=== PATIENT | female | born 1975 | race Caucasian/White ===

== ENCOUNTER 2019-02-07 09:08 | Emergency (ER) | payer MEDICAID ==
[~2019-02-07] VITALS: Ht 157.5 cm; Wt 88.9 kg
[2019-02-07 09:24] VITALS: BP_SYST 159
[2019-02-07] MEDS ORDERED: KETOROLAC TROMETHAMINE 60 MG/2 ML VIAL IM ONE (10:00)
[2019-02-07 10:19] LABS: BASOPHILS % (AUTO) 0.3 % (0.0-2.0); EOSINOPHILS # (AUTO) 0.1 K/uL (0.0-0.4); EOSINOPHILS % (AUTO) 0.8 % (0.0-4.0); HEMATOCRIT 37.6 % (36-48); HEMOGLOBIN 12.8 g/dL (12.0-16.0); LYMPHOCYTES # (AUTO) 1.9 K/uL (1.0-5.5); LYMPHOCYTES % (AUTO) 12.8 % (20.5-51.5); MEAN CORPUSCULAR HEMOGLOBIN 30 pg (27-31); MEAN CORPUSCULAR HGB CONC 34 % (32-36); MEAN CORPUSCULAR VOLUME 88 fL (79.0-98.0); MONOCYTES % (AUTO) 6.4 % (1.7-9.3); NEUTROPHILS # (AUTO) 11.9 K/uL (1.8-7.7); NEUTROPHILS % (AUTO) 79.7 % (40.0-70.0); PLATELET COUNT (AUTO) 214 K/uL (130-430); RED BLOOD CELL COUNT(AUTO) 4.27 MIL/uL (4.2-6.2); RED CELL DISTRIBUTION WIDTH 13.4 % (9.0-15.0)
[2019-02-07 10:26] LABS: CALCIUM 8.7 mg/dL (8.4-11.0); CREATININE 0.66 mg/dL (0.55-1.30); POTASSIUM 3.5 mmol/L (3.5-5.1)
[2019-02-07 10:32] LABS: ALBUMIN 3.1 g/dL (3.4-4.8); TOTAL BILIRUBIN 0.6 mg/dL (0.0-1.0)
[2019-02-07 10:41] LABS: BILIRUBIN,URINE NEGATIVE (NEGATIVE); BLOOD, URINE 1+ (NEGATIVE); CLARITY/URINE SL HAZY (CLEAR); COLOR,URINE YELLOW (YELLOW); GLUCOSE,URINE NEGATIVE (NEGATIVE); KETONES,URINE NEGATIVE (NEGATIVE); LEUKOCYTE ESTERASE ,URINE 3+ (NEGATIVE); NITRITE, URINE NEGATIVE (NEGATIVE); PH,URINE 6.5 (5.0-8.0); PROTEIN URINE NEGATIVE (NEGATIVE); UROBILINOGEN,URINE 0.2 (0.2-1.0)
[2019-02-07 10:50] LABS: BACTERIA,URINE MODERATE /HPF (None Seen); MUCUS,URINE 1+ /LPF (None Seen)
[2019-02-07] MEDS ORDERED: cefTRIAXone 250 MG VIAL IM ONE (11:30)
[2019-02-07] MEDS ORDERED: AZITHROMYCIN 250 MG TABLET PO ONE (11:30)
[2019-02-07] MEDS ORDERED: LIDOCAINE 1% 10 MG/ML, 20 ML MDV INJ ONE (11:45)
[2019-02-07] MEDS ORDERED: LIDOCAINE 1%, 20 ML MDV 20 ML ONE (11:50)
[2019-02-07 12:05] VITALS: BP_SYST 142
[2019-02-09 05:07] LABS: CHLAMYDIA TRACHOMATIS NAA Negative (Negative); NEISSERIA GONORRHOEAE NAA Negative (Negative)
== END 2019-02-07 12:05 | disposition home or self-care (01) ==
LOC: SED 09:08
DX: N39.0 Urinary tract infection, site not specified (principal)
CPT/HCPCS: 36415; 74176; 80053; 81000; 81025; 83690; 85025; 87086; 87491; 87591; 96372; 99284; J0696; J1885; J2001; Q0144

== ENCOUNTER 2023-04-21 16:31 | Inpatient (IN) | payer MEDICAID ==
[~2023-04-21] VITALS: Ht 157.5 cm; Wt 86.2 kg
[2023-04-21 16:49] VITALS: BP_SYST 165; PULSE 95; RESP 22; TEMP 96.2; O2SAT 96
[2023-04-21] MEDS ORDERED: MORPHINE 4 MG INJ. 4 MG/ML VIAL IVP ONE ×2 (17:15→22:15)
[2023-04-21] MEDS ORDERED: ONDANSETRON HCL 4 MG/2 ML VIAL ONE (17:36)
[2023-04-21 17:45] LABS: BASOPHILS % (AUTO) 0.3 % (0.0-2.0); EOSINOPHILS # (AUTO) 0.2 K/uL (0.0-0.4); EOSINOPHILS % (AUTO) 1.5 % (0.0-4.0); HEMATOCRIT 44.4 % (36-48); LYMPHOCYTES # (AUTO) 2.4 K/uL (1.0-5.5); LYMPHOCYTES % (AUTO) 16.3 % (20.5-51.5); MEAN CORPUSCULAR HEMOGLOBIN 30 pg (27-31); MEAN CORPUSCULAR HGB CONC 34 % (32-36); MEAN CORPUSCULAR VOLUME 88 fL (79.0-98.0); MONOCYTES # (AUTO) 0.7 K/uL (0.0-1.0); NEUTROPHILS # (AUTO) 11.5 K/uL (1.8-7.7); NEUTROPHILS % (AUTO) 76.9 % (40.0-70.0); PLATELET COUNT (AUTO) 246 K/uL (130-430); RED BLOOD CELL COUNT(AUTO) 5.07 MIL/uL (4.2-6.2); RED CELL DISTRIBUTION WIDTH 13.5 % (9.0-15.0)
[2023-04-21] MEDS ORDERED: ONDANSETRON HCL 4 MG/2 ML VIAL IVP ONE (17:45)
[2023-04-21 18:24] LABS: ALBUMIN 3.6 g/dL (3.4-4.8); CALCIUM 8.9 mg/dL (8.4-11.0); CREATININE 0.63 mg/dL (0.55-1.30); TOTAL BILIRUBIN 0.5 mg/dL (0.0-1.0); TOTAL PROTEIN, SERUM 7.6 g/dL (6.4-8.3)
[2023-04-21 18:29] LABS: POTASSIUM 2.8 mmol/L (3.5-5.1)
[2023-04-21] MEDS ORDERED: POTASSIUM CHLORIDE 40 MEQ in 0.45% NS 250 ML IV ONE (18:30)
[2023-04-21] MEDS ORDERED: HYDROmorphone 1 MG/ML INJ. CARTRIDGE IVP ONE (19:15)
[2023-04-21 21:39] LABS: BILIRUBIN,URINE NEGATIVE (NEGATIVE); BLOOD, URINE 1+ (NEGATIVE); CLARITY/URINE CLEAR (CLEAR); COLOR,URINE YELLOW (YELLOW); GLUCOSE,URINE NEGATIVE (NEGATIVE); KETONES,URINE NEGATIVE (NEGATIVE); LEUKOCYTE ESTERASE ,URINE NEGATIVE (NEGATIVE); NITRITE, URINE NEGATIVE (NEGATIVE); PH,URINE 5.5 (5.0-8.0); PROTEIN URINE NEGATIVE (NEGATIVE); UROBILINOGEN,URINE 0.2 (0.2-1.0)
[2023-04-21] MEDS ORDERED: cefTRIAXone 2 GM VIAL ONE (21:42)
[2023-04-21] MEDS ORDERED: NACL 0.9% 1,000 ML IV ONE (21:45)
[2023-04-21 22:29] LABS: BACTERIA,URINE RARE /HPF (None Seen)
[2023-04-22 01:27] VITALS: BP_SYST 167; PULSE 117; RESP 20; TEMP 98.6; O2SAT 98
[2023-04-22] MEDS ORDERED: METOPROLOL TARTRATE 50 MG TABLET PO ONE (02:15)
[2023-04-22] MEDS ORDERED: NALOXONE HCL 0.4 MG/ML AMP (NARCAN) IVP PRN ×3 (02:15→11:00)
[2023-04-22] MEDS ORDERED: PIPERACILLIN/TAZOBACTAM 3.375 GM/VIAL (ZOSYN) IV ONE (02:41)
[2023-04-22] MEDS: cloNIDine HCL 0.1 MG TABLET PO PRN ×2 (02:45→22:44)
[2023-04-22] MEDS: HYDROmorphone 1 MG/ML INJ. CARTRIDGE IVP PRN ×3 (02:47→20:52)
[2023-04-22] MEDS: ONDANSETRON HCL 4 MG/2 ML VIAL IVP PRN (02:48)
[2023-04-22] MEDS: PIPERACILLIN/TAZO 3.375 GM in NS 50 ML IV SCH ×4 (06:45→11:37)
[2023-04-22 08:05] VITALS: BP_SYST 157; PULSE 115; RESP 20; TEMP 98.3; O2SAT 90
[2023-04-22] MEDS: METOPROLOL TARTRATE 50 MG TABLET PO SCH ×2 (10:16→21:53)
[2023-04-22] MEDS ORDERED: POTASSIUM CHLORIDE 20 MEQ TAB.PRT.SR PO ONE (10:45)
[2023-04-22] MEDS ORDERED: cloNIDine HCL 0.1 MG TABLET PO PRN (11:00)
[2023-04-22] MEDS ORDERED: KETOROLAC TROMETHAMINE 15 MG VIAL IVP ONE (11:00)
[2023-04-22] MEDS: LR 1,000 ML IV SCH ×2 (11:30→21:25)
[2023-04-22] MEDS ORDERED: DOXYCYCLINE HYCLATE 100 MG CAPSULE PO ONE (12:00)
[2023-04-22] MEDS ORDERED: ENOXAPARIN SODIUM 40 MG/0.4 ML SYRINGE SUBCUT ONE (12:00)
[2023-04-22 12:05] VITALS: BP_SYST 121; PULSE 97; RESP 19; TEMP 98.2; O2SAT 95
[2023-04-22 12:06] LABS: BASOPHILS % (AUTO) 0.3 % (0.0-2.0); EOSINOPHILS % (AUTO) 0.1 % (0.0-4.0); LYMPHOCYTES # (AUTO) 0.9 K/uL (1.0-5.5); LYMPHOCYTES % (AUTO) 5.9 % (20.5-51.5); MEAN CORPUSCULAR HEMOGLOBIN 29 pg (27-31); MEAN CORPUSCULAR HGB CONC 33 % (32-36); MEAN CORPUSCULAR VOLUME 88 fL (79.0-98.0); MONOCYTES # (AUTO) 0.5 K/uL (0.0-1.0); MONOCYTES % (AUTO) 3.1 % (1.7-9.3); NEUTROPHILS % (AUTO) 90.6 % (40.0-70.0); PLATELET COUNT (AUTO) 195 K/uL (130-430); RED BLOOD CELL COUNT(AUTO) 4.45 MIL/uL (4.2-6.2); RED CELL DISTRIBUTION WIDTH 13.3 % (9.0-15.0); WHITE BLOOD COUNT (AUTO) 15.4 K/uL (4.8-10.8)
[2023-04-22] MEDS ORDERED: iohexoL 350 mgI/mL, 100 ML INFUS..BTL IV ONE (13:47)
[2023-04-22] MEDS: metroNIDAZOLE 500 MG TABLET PO SCH ×2 (15:56→21:52)
[2023-04-22] MEDS: cefOXitin SODIUM 2 GM in D5W 100 ML IV SCH ×2 (15:57→21:21)
[2023-04-22] MEDS: KETOROLAC TROMETHAMINE 15 MG VIAL IVP PRN (17:24)
[2023-04-22 20:00] VITALS: BP_SYST 174; PULSE 111; RESP 20; TEMP 102.2; O2SAT 93
[2023-04-22] MEDS: ACETAMINOPHEN 325 MG TABLET PO PRN (20:50)
[2023-04-22 21:31] VITALS: O2SAT 95
[2023-04-22 21:48] VITALS: BP_SYST 172; PULSE 109; RESP 18; TEMP 99.1; O2SAT 96
[2023-04-22] MEDS: POTASSIUM CHLORIDE 20 MEQ TAB.PRT.SR PO SCH (21:52)
[2023-04-22] MEDS: DOXYCYCLINE HYCLATE 100 MG CAPSULE PO SCH (21:53)
[2023-04-23] VITALS (9 sets, daily range): BP systolic 145–188; PULSE 95–106; RESP 18; TEMP 97.5–98.6; O2SAT 88–97
[2023-04-23] MEDS: HYDROmorphone 1 MG/ML INJ. CARTRIDGE IVP PRN ×4 (01:20→22:00)
[2023-04-23] MEDS: metroNIDAZOLE 500 MG TABLET PO SCH ×3 (05:43→21:08)
[2023-04-23] MEDS: cefOXitin SODIUM 2 GM in D5W 100 ML IV SCH ×3 (06:01→21:55)
[2023-04-23 06:45] LABS: BASOPHILS % (AUTO) 0.1 % (0.0-2.0); EOSINOPHILS # (AUTO) 0.1 K/uL (0.0-0.4); EOSINOPHILS % (AUTO) 0.8 % (0.0-4.0); HEMATOCRIT 34.8 % (36-48); HEMOGLOBIN 11.6 g/dL (12.0-16.0); LYMPHOCYTES # (AUTO) 0.7 K/uL (1.0-5.5); LYMPHOCYTES % (AUTO) 5.1 % (20.5-51.5); MEAN CORPUSCULAR HEMOGLOBIN 29 pg (27-31); MEAN CORPUSCULAR HGB CONC 33 % (32-36); MEAN CORPUSCULAR VOLUME 88 fL (79.0-98.0); MONOCYTES # (AUTO) 0.3 K/uL (0.0-1.0); MONOCYTES % (AUTO) 2.1 % (1.7-9.3); NEUTROPHILS # (AUTO) 13.4 K/uL (1.8-7.7); NEUTROPHILS % (AUTO) 91.9 % (40.0-70.0); PLATELET COUNT (AUTO) 170 K/uL (130-430); RED BLOOD CELL COUNT(AUTO) 3.94 MIL/uL (4.2-6.2); RED CELL DISTRIBUTION WIDTH 13.6 % (9.0-15.0); WHITE BLOOD COUNT (AUTO) 14.6 K/uL (4.8-10.8)
[2023-04-23] MEDS: LR 1,000 ML IV SCH ×2 (07:30→11:30)
[2023-04-23 07:55] LABS: ALBUMIN 2.4 g/dL (3.4-4.8); CALCIUM 8.3 mg/dL (8.4-11.0); CREATININE 0.57 mg/dL (0.55-1.30); POTASSIUM 3.3 mmol/L (3.5-5.1); TOTAL BILIRUBIN 0.8 mg/dL (0.0-1.0); TOTAL PROTEIN, SERUM 6.3 g/dL (6.4-8.3)
[2023-04-23] MEDS: POTASSIUM CHLORIDE 20 MEQ TAB.PRT.SR PO SCH ×2 (08:46→21:05)
[2023-04-23] MEDS: DOXYCYCLINE HYCLATE 100 MG CAPSULE PO SCH ×2 (08:47→21:05)
[2023-04-23] MEDS: METOPROLOL TARTRATE 50 MG TABLET PO SCH (08:47)
[2023-04-23] MEDS: HYDROcodone/ACETAMIN 5-325 MG TAB (NORCO/ VICODIN) PO PRN ×2 (08:48→13:52)
[2023-04-23] MEDS: ENOXAPARIN SODIUM 40 MG/0.4 ML SYRINGE SUBCUT SCH (08:49)
[2023-04-23] MEDS: lisinopriL 20 MG TABLET PO SCH (08:49)
[2023-04-23] MEDS ORDERED: DOCUSATE SODIUM 250 MG CAPSULE PO ONE (14:30)
[2023-04-23] MEDS: IPRATROPIUM/ALBUTEROL SULFATE 3 ML AMPUL.NEB (DUONEB) INH SCH ×2 (15:20→20:15)
[2023-04-23] MEDS: ACETAMINOPHEN 325 MG TABLET PO PRN (16:32)
[2023-04-23] MEDS: ONDANSETRON HCL 4 MG/2 ML VIAL IVP PRN (17:19)
[2023-04-23] MEDS: DOCUSATE SODIUM 250 MG CAPSULE PO SCH (21:05)
[2023-04-24] VITALS (10 sets, daily range): BP systolic 137–162; PULSE 80–112; RESP 16–24; TEMP 96.8–99.1; O2SAT 92–97
[2023-04-24] MEDS: HYDROcodone/ACETAMIN 5-325 MG TAB (NORCO/ VICODIN) PO PRN ×4 (01:57→20:39)
[2023-04-24] MEDS: cefOXitin SODIUM 2 GM in D5W 100 ML IV SCH ×3 (05:11→22:47)
[2023-04-24] MEDS: metroNIDAZOLE 500 MG TABLET PO SCH ×3 (05:24→21:22)
[2023-04-24 05:42] LABS: BASOPHILS % (AUTO) 0.1 % (0.0-2.0); EOSINOPHILS # (AUTO) 0.1 K/uL (0.0-0.4); HEMATOCRIT 32.6 % (36-48); HEMOGLOBIN 11.1 g/dL (12.0-16.0); LYMPHOCYTES # (AUTO) 0.7 K/uL (1.0-5.5); LYMPHOCYTES % (AUTO) 4.8 % (20.5-51.5); MEAN CORPUSCULAR HEMOGLOBIN 30 pg (27-31); MEAN CORPUSCULAR HGB CONC 34 % (32-36); MEAN CORPUSCULAR VOLUME 87 fL (79.0-98.0); MONOCYTES # (AUTO) 0.4 K/uL (0.0-1.0); MONOCYTES % (AUTO) 2.7 % (1.7-9.3); NEUTROPHILS # (AUTO) 12.7 K/uL (1.8-7.7); NEUTROPHILS % (AUTO) 91.4 % (40.0-70.0); PLATELET COUNT (AUTO) 168 K/uL (130-430); RED BLOOD CELL COUNT(AUTO) 3.74 MIL/uL (4.2-6.2); RED CELL DISTRIBUTION WIDTH 13.2 % (9.0-15.0); WHITE BLOOD COUNT (AUTO) 13.9 K/uL (4.8-10.8)
[2023-04-24 06:24] LABS: ERYTHROCYTE SEDIMENTATION RATE 70 MM/HR (0-20)
[2023-04-24 07:10] LABS: ALANINE AMINOTRANSFERASE 13 U/L (12-78); ALBUMIN 2.1 g/dL (3.4-4.8); ANION GAP 5 (5-15); ASPARTATE AMINOTRANSFERASE 12 U/L (10-37); CALCIUM 8.3 mg/dL (8.4-11.0); CARBON DIOXIDE 28 mmol/L (23-29); CHLORIDE 94 mmol/L (98-107); CREATININE 0.64 mg/dL (0.55-1.30); GFR AFRICAN AMERICAN 127 mL/min (>90); GLUCOSE 123 mg/dL (74-106); POTASSIUM 3.1 mmol/L (3.5-5.1); SODIUM SERUM 127 mmol/L (136-145); TOTAL BILIRUBIN 0.6 mg/dL (0.0-1.0); TOTAL PROTEIN, SERUM 6.1 g/dL (6.4-8.3); UREA NITROGEN, BLOOD 5 mg/dL (8-21)
[2023-04-24 07:14] LABS: GFR NON AFRICAN-AMERICAN 105 mL/min (>90)
[2023-04-24] MEDS: IPRATROPIUM/ALBUTEROL SULFATE 3 ML AMPUL.NEB (DUONEB) INH SCH ×4 (07:19→21:19)
[2023-04-24] MEDS: KETOROLAC TROMETHAMINE 15 MG VIAL IVP PRN (08:50)
[2023-04-24] MEDS: DOXYCYCLINE HYCLATE 100 MG CAPSULE PO SCH ×2 (08:52→20:39)
[2023-04-24] MEDS: POTASSIUM CHLORIDE 20 MEQ TAB.PRT.SR PO SCH ×2 (08:52→20:39)
[2023-04-24] MEDS: METOPROLOL SUCCINATE 50 MG TAB.SR.24H (TOPROL XL) PO SCH (08:52)
[2023-04-24] MEDS: DOCUSATE SODIUM 250 MG CAPSULE PO SCH ×2 (08:52→21:23)
[2023-04-24] MEDS: lisinopriL 20 MG TABLET PO SCH (08:53)
[2023-04-24] MEDS: ENOXAPARIN SODIUM 40 MG/0.4 ML SYRINGE SUBCUT SCH (08:53)
[2023-04-24] MEDS: ACETAMINOPHEN 325 MG TABLET PO PRN (08:57)
[2023-04-24] MEDS: ONDANSETRON HCL 4 MG/2 ML VIAL IVP PRN (16:19)
[2023-04-24] MEDS ORDERED: FAMOTIDINE 20 MG TABLET PO ONE (16:30)
[2023-04-24] MEDS ORDERED: FAMOTIDINE 20 MG TABLET ONE (16:45)
[2023-04-25] VITALS (10 sets, daily range): BP systolic 137–156; PULSE 90–110; RESP 18–20; TEMP 97.1–99.5; O2SAT 92–98
[2023-04-25] MEDS: ACETAMINOPHEN 325 MG TABLET PO PRN (00:27)
[2023-04-25] MEDS: HYDROcodone/ACETAMIN 5-325 MG TAB (NORCO/ VICODIN) PO PRN ×4 (04:36→21:59)
[2023-04-25] MEDS: cefOXitin SODIUM 2 GM in D5W 100 ML IV SCH ×3 (05:16→21:58)
[2023-04-25] MEDS: metroNIDAZOLE 500 MG TABLET PO SCH ×3 (05:37→21:59)
[2023-04-25 05:58] LABS: BASOPHILS % (AUTO) 0.1 % (0.0-2.0); EOSINOPHILS # (AUTO) 0.2 K/uL (0.0-0.4); EOSINOPHILS % (AUTO) 1.7 % (0.0-4.0); HEMATOCRIT 35.1 % (36-48); HEMOGLOBIN 11.7 g/dL (12.0-16.0); LYMPHOCYTES # (AUTO) 0.8 K/uL (1.0-5.5); LYMPHOCYTES % (AUTO) 6.1 % (20.5-51.5); MEAN CORPUSCULAR HEMOGLOBIN 29 pg (27-31); MEAN CORPUSCULAR HGB CONC 33 % (32-36); MEAN CORPUSCULAR VOLUME 87 fL (79.0-98.0); MONOCYTES # (AUTO) 0.5 K/uL (0.0-1.0); MONOCYTES % (AUTO) 3.6 % (1.7-9.3); NEUTROPHILS # (AUTO) 11.7 K/uL (1.8-7.7); NEUTROPHILS % (AUTO) 88.5 % (40.0-70.0); PLATELET COUNT (AUTO) 237 K/uL (130-430); RED BLOOD CELL COUNT(AUTO) 4.05 MIL/uL (4.2-6.2); RED CELL DISTRIBUTION WIDTH 13.5 % (9.0-15.0); WHITE BLOOD COUNT (AUTO) 13.2 K/uL (4.8-10.8)
[2023-04-25 06:05] LABS: CALCIUM 8.8 mg/dL (8.4-11.0); CREATININE 0.73 mg/dL (0.55-1.30); POTASSIUM 3.4 mmol/L (3.5-5.1)
[2023-04-25] MEDS: IPRATROPIUM/ALBUTEROL SULFATE 3 ML AMPUL.NEB (DUONEB) INH SCH ×4 (07:36→20:18)
[2023-04-25] MEDS: ONDANSETRON HCL 4 MG/2 ML VIAL IVP PRN ×3 (08:56→21:59)
[2023-04-25] MEDS: DOCUSATE SODIUM 250 MG CAPSULE PO SCH ×2 (08:57→21:19)
[2023-04-25] MEDS: ENOXAPARIN SODIUM 40 MG/0.4 ML SYRINGE SUBCUT SCH (08:57)
[2023-04-25] MEDS: FAMOTIDINE 20 MG TABLET PO SCH (08:57)
[2023-04-25] MEDS: DOXYCYCLINE HYCLATE 100 MG CAPSULE PO SCH ×2 (08:57→21:18)
[2023-04-25] MEDS: METOPROLOL SUCCINATE 50 MG TAB.SR.24H (TOPROL XL) PO SCH (08:58)
[2023-04-25] MEDS: FUROSEMIDE 20 MG TABLET PO SCH (08:59)
[2023-04-25] MEDS: lisinopriL 20 MG TABLET PO SCH (09:00)
[2023-04-25] MEDS: POTASSIUM CHLORIDE 20 MEQ TAB.PRT.SR PO SCH ×2 (09:00→21:18)
[2023-04-25] MEDS ORDERED: CARVEDILOL 12.5 MG TABLET (COREG) PO ONE (13:30)
[2023-04-25] MEDS: HYDROmorphone 1 MG/ML INJ. CARTRIDGE IVP PRN (14:16)
[2023-04-25] MEDS: CARVEDILOL 12.5 MG TABLET (COREG) PO SCH (21:19)
[2023-04-26] VITALS (8 sets, daily range): BP systolic 141–160; PULSE 74–88; RESP 17–20; TEMP 97–98.2; O2SAT 93–98
[2023-04-26] MEDS: HYDROcodone/ACETAMIN 5-325 MG TAB (NORCO/ VICODIN) PO PRN ×3 (02:12→15:38)
[2023-04-26] MEDS: metroNIDAZOLE 500 MG TABLET PO SCH ×3 (06:03→20:08)
[2023-04-26] MEDS: ONDANSETRON HCL 4 MG/2 ML VIAL IVP PRN (06:04)
[2023-04-26] MEDS: cefOXitin SODIUM 2 GM in D5W 100 ML IV SCH ×2 (06:04→15:38)
[2023-04-26 06:42] LABS: BASOPHILS % (AUTO) 0.3 % (0.0-2.0); EOSINOPHILS # (AUTO) 0.5 K/uL (0.0-0.4); EOSINOPHILS % (AUTO) 4.8 % (0.0-4.0); HEMATOCRIT 35.7 % (36-48); HEMOGLOBIN 11.8 g/dL (12.0-16.0); LYMPHOCYTES # (AUTO) 0.9 K/uL (1.0-5.5); LYMPHOCYTES % (AUTO) 9.2 % (20.5-51.5); MEAN CORPUSCULAR HEMOGLOBIN 29 pg (27-31); MEAN CORPUSCULAR HGB CONC 33 % (32-36); MEAN CORPUSCULAR VOLUME 87 fL (79.0-98.0); MONOCYTES # (AUTO) 0.7 K/uL (0.0-1.0); MONOCYTES % (AUTO) 7.1 % (1.7-9.3); NEUTROPHILS # (AUTO) 7.7 K/uL (1.8-7.7); NEUTROPHILS % (AUTO) 78.6 % (40.0-70.0); PLATELET COUNT (AUTO) 260 K/uL (130-430); RED BLOOD CELL COUNT(AUTO) 4.11 MIL/uL (4.2-6.2); RED CELL DISTRIBUTION WIDTH 13.6 % (9.0-15.0)
[2023-04-26] MEDS: IPRATROPIUM/ALBUTEROL SULFATE 3 ML AMPUL.NEB (DUONEB) INH SCH ×4 (07:00→19:00)
[2023-04-26 07:15] LABS: WHITE BLOOD COUNT (AUTO) 9.8 K/uL (4.8-10.8)
[2023-04-26 07:21] LABS: ALANINE AMINOTRANSFERASE 17 U/L (12-78); ALBUMIN 2.2 g/dL (3.4-4.8); ANION GAP 8 (5-15); ASPARTATE AMINOTRANSFERASE 26 U/L (10-37); CARBON DIOXIDE 28 mmol/L (23-29); CHLORIDE 97 mmol/L (98-107); GFR AFRICAN AMERICAN 137 mL/min (>90); GLUCOSE 109 mg/dL (74-106); POTASSIUM 4.1 mmol/L (3.5-5.1); SODIUM SERUM 133 mmol/L (136-145); TOTAL BILIRUBIN 0.5 mg/dL (0.0-1.0); TOTAL PROTEIN, SERUM 6.6 g/dL (6.4-8.3); UREA NITROGEN, BLOOD 6 mg/dL (8-21)
[2023-04-26] MEDS ORDERED: GASTROGRAFIN 120 ML ONE (07:35)
[2023-04-26 07:55] LABS: GFR NON AFRICAN-AMERICAN 113 mL/min (>90)
[2023-04-26] MEDS: POTASSIUM CHLORIDE 20 MEQ TAB.PRT.SR PO SCH (08:25)
[2023-04-26] MEDS: DOXYCYCLINE HYCLATE 100 MG CAPSULE PO SCH ×2 (08:26→20:07)
[2023-04-26] MEDS: FAMOTIDINE 20 MG TABLET PO SCH (08:26)
[2023-04-26] MEDS: CARVEDILOL 12.5 MG TABLET (COREG) PO SCH (08:28)
[2023-04-26] MEDS: lisinopriL 20 MG TABLET PO SCH (08:28)
[2023-04-26] MEDS: ENOXAPARIN SODIUM 40 MG/0.4 ML SYRINGE SUBCUT SCH (08:29)
[2023-04-26] MEDS: FUROSEMIDE 20 MG TABLET PO SCH (08:29)
[2023-04-26] MEDS: DOCUSATE SODIUM 250 MG CAPSULE PO SCH ×2 (08:33→20:09)
[2023-04-26] MEDS ORDERED: LISI20TA30 PO (18:17)
[2023-04-26] MEDS ORDERED: DOXY100C5 PO (18:17)
[2023-04-26] MEDS ORDERED: METR-154 PO (18:17)
[2023-04-26] MEDS ORDERED: COR12.5 PO (18:17)
[2023-04-26] MEDS ORDERED: CEFU250T85 PO (18:22)
[2023-04-26] MEDS ORDERED: FAMO20TA8 PO (18:25)
[2023-04-26] MEDS ORDERED: CARVEDILOL 6.25 MG TABLET (COREG) PO SCH (21:00)
[2023-04-26] MEDS ORDERED: POTASSIUM CHLORIDE 20 MEQ TAB.PRT.SR PO SCH (21:00)
== END 2023-04-26 20:50 | disposition home or self-care (01) | DRG 720 ==
LOC: SED 16:31 → STU 21:55 → SMU 04-22 11:25
PROVIDERS: ADMIT Internal Medicine; ATTEND Internal Medicine
DX: A41.9 Sepsis, unspecified organism (principal); J96.00 Acute respiratory failure, unspecified whether with hypoxia or hypercapnia; J18.9 Pneumonia, unspecified organism; I27.20 Pulmonary hypertension, unspecified; E66.9 Obesity, unspecified; N34.2 Other urethritis; K59.00 Constipation, unspecified; I10 Essential (primary) hypertension; N73.9 Female pelvic inflammatory disease, unspecified; Z86.711 Personal history of pulmonary embolism; Z82.49 Family history of ischemic heart disease and other diseases of the circulatory system; Z90.49 Acquired absence of other specified parts of digestive tract; Z68.34 Body mass index [BMI] 34.0-34.9, adult
CPT/HCPCS: 36415; 71275; 74250-TC; 76376; 80048; 80053; 81000; 83690; 83735; 83880; 84484; 84702; 85025; 85651-TC; 86592; 87070-TC; 87210-TC; 87491; 93005; 93306; 94640; 94760; 96361; 96365; 96375; 96376; 99285; G0378; J0694; J0696; J1170; J1650; J1885; J2270; J2405; J2543; J3480; J7060; Q9963; Q9967